=== PATIENT | male | born 1985 | race African-American/Black ===

== ENCOUNTER 2017-03-01 17:46 | Emergency (ER) | payer OTHER ==
[~2017-03-01] VITALS: Ht 170.2 cm; Wt 86.2 kg
[~2017-03-01 17:46] MED LIST: CYCLOBENZAPRINE10 MG ORAL; IBUPROFEN600 MG ORAL
--- NOTE | 2017-03-01 18:05 | Emergency Room Report ---
History of Present Illness General Chief Complaint: Skin Rash/Abscess Source: Patient Present Illness HPI 31 YO Male presents to the ED c/o pain, swelling, and erythema of multiple purulent lesions on the bilateral LE's and a indurated area of the left lateral forearm. pt. reports hx of frequent skin infections, in addition to hidradenitis. he denies nausea, vomiting, fevers, chills. Patient denies itching. Patient reports several pustules appeared 3 days ago and has had surrounding erythema progress over the course of 3 days. Patient states she was previously treated by der[facility] helper for staph infection months ago. Patient denies history of immunocompromise denies IV drug use. Patient denies palpable tender lymph nodes. Denies CP, Palpitations, LOC, AMS, dizziness, Changes in Vision, Sensation, paresthesias, or a sudden severe headache. Allergies: Coded Allergies: No Known Allergies (Unverified , 04/14/16) Patient History Past Medical History: see triage record Past Surgical History: none Pertinent Family History: none Immunizations: UTD Reviewed Nursing Documentation: PMH: Agreed, PSxH: Agreed Nursing Documentation-PMH Past Medical History: No History, Except For Hx Hypertension: No - ECZEMA Hx Pacemaker: Yes - LEFT Review of Systems All Other Systems: negative except mentioned in HPI Physical Exam Vital Signs Date Time Temp Pulse Resp B/P Pulse Ox O2 Delivery O2 Flow Rate FiO2 03/01/17 17:58 98.2 83 20 125/74 100 Room Air Sp02 EP Interpretation: reviewed, normal General Appearance: well appearing, no apparent distress, alert, GCS 15, non- toxic Head: normocephalic, atraumatic Eyes: bilateral eye PERRL, bilateral eye normal inspection ENT: hearing grossly normal, normal pharynx, no angioedema, normal voice Neck: full range of motion Respiratory: lungs clear, normal breath sounds, speaking full sentences Cardiovascular #1: regular rate, rhythm, no edema Musculoskeletal: back normal, gait/station normal, normal range of motion, inflammation - multiple pustules noted on bilateral LE with surrounding erythema , increased temperature to palpation, and swelling. good distal pulses, swelling Neurologic: alert, oriented x3, responsive, motor strength/tone normal, sensory intact, speech normal Psychiatric: judgement/insight normal, memory normal, mood/affect normal Skin: normal color, warm/dry, well hydrated, other - multiple pustules noted on bilateral LE with surrounding erythema, increased temperature to palpation, and swelling. good distal pulses. there is 1cm induration of the lateral left forearm, no fluctuance, erythema noted suspicious for abscess. Pt. also has soft tissue swelling in a linear fashion in the left axilla - not inflammed at this time. Medical Decision Making PA Attestation Dr. Moyer is my supervising Physician whom patient management has been discussed with. Diagnostic Impression: Primary Impression: Cellulitis Qualified Codes: L03.818 - Cellulitis of other sites Additional Impressions: Abscess Hx of hidradenitis suppurativa ER Course 31 YO Male presents to the ED c/o pain, swelling, and erythema of multiple purulent lesions on the bilateral LE's and a indurated area of the left lateral forearm. pt. reports hx of frequent skin infections, in addition to hidradenitis. he denies nausea, vomiting, fevers, chills. Patient denies itching. Patient reports several pustules appeared 3 days ago and has had surrounding erythema progress over the course of 3 days. Patient states she was previously treated by der[facility] helper for staph infection months ago. Patient denies history of immunocompromise denies IV drug use. Patient denies palpable tender lymph nodes. Denies CP, Palpitations, LOC, AMS, dizziness, Changes in Vision, Sensation, paresthesias, or a sudden severe headache. Ddx considered but are not limited to cellulitis, abscess, insect bites, infestation just to name a few Vital signs: are WNL, pt. is afebrile H&PE are most consistent with soft tissue skin infections of multiple sites. ORDERS: none required at this time, the diagnosis is clinical ED INTERVENTIONS: - Pt. declines I & D. -D/w pt. will treat with oral abx, and to return to the ED promptly with worsening or new symptoms, other gracia pt. is stable for close outpatient follow up. DISCHARGE: At this time pt. is stable for d/c to home. Will provide printed patient care instructions, and any necessary prescriptions. Care plan and follow up instructions have been discussed with the patient prior to discharge. Last Vital Signs Date Time Temp Pulse Resp B/P Pulse Ox O2 Delivery O2 Flow Rate FiO2 03/01/17 17:58 98.2 83 20 125/74 100 Room Air Disposition: HOME, SELF-CARE Condition: Stable Scripts Mupirocin* (MUPIROCIN*) 22 Gm Oint...g. 1 APPLIC TOPIC THREE TIMES A DAY, #22 GM Prov: Gabriela Keita 03/01/17 Doxycycline Hyclate* (VIBRAMYCIN*) 100 Mg Capsule 100 MG ORAL EVERY 12 HOURS for 7 Days, #14 CAP 0 Refills Prov: Gabriela Keita 03/01/17 Ibuprofen* (MOTRIN*) 600 Mg Tablet 600 MG ORAL THREE TIMES A DAY, #30 TAB 0 Refills Prov: Gabriela Keita 03/01/17 Patient Instructions: Cellulitis, Staphylococcal Infection Additional Instructions: Take medications as directed. Follow up with a Primary Care Provider and [employer] [facility] in 3-5 days, even if your symptoms have resolved. --Please review list of primary care clinics, if you do not already have a primary care provider Return sooner to ED if new symptoms occur, or current symptoms become worse. - Please note that this Emergency Department Report was dictated using [employer] database technology software, occasionally this can lead to erroneous entry secondary to interpretation by the dictation equipment. Gabriela Keita Mar 01, 2017 18:05
[2017-03-01] MEDS ORDERED: VIBRAMYCIN100 MG ORAL (18:20)
[2017-03-01] MEDS ORDERED: IBUPROFEN600 MG ORAL (18:20)
[2017-03-01] MEDS ORDERED: MUPIROCIN22 GM TOPIC (18:20)
[2017-03-01 18:36] VITALS: BP 125/74
[2017-03-01 18:42] VITALS: BP 125/74
== END 2017-03-01 18:40 | disposition home or self-care (01) ==
LOC: EMR 18:35
DX: L03.116 Cellulitis of left lower limb (principal); L03.115 Cellulitis of right lower limb; L02.416 Cutaneous abscess of left lower limb; L02.415 Cutaneous abscess of right lower limb
CPT/HCPCS: 99284